=== PATIENT | female | born 1985 | race Caucasian/White ===

== ENCOUNTER → 2022-02-16 | Outpatient (CLI) | payer OTHER ==
--- NOTE | 2022-02-16 11:38 | XR ---
EXAMINATION TYPE: XR elbow complete RT DATE OF EXAM: 02/16/2022 COMPARISON: NONE HISTORY: Pain FINDINGS: Three views of the elbow demonstrate no pathologic joint effusion. The osseous structures are intact . There is no acute fracture or dislocation. IMPRESSION: 1. No acute fracture or dislocation. If symptoms persist follow-up study in 7 to 10 days could be ob tained.
--- NOTE | 2022-02-16 11:39 | XR ---
EXAMINATION TYPE: XR forearm RT DATE OF EXAM: 02/16/2022 COMPARISON: NONE HISTORY: Pain Two views of the forearm demonstrate that the osseous structures appear to be intact and the joint sp aces appear to be preserved. There is no acute fracture or dislocation. IMPRESSION: 1. No acute fracture or dislocation
--- NOTE | 2022-02-16 11:39 | XR ---
EXAMINATION TYPE: XR shoulder complete RT, XR humerus RT DATE OF EXAM: 02/16/2022 CLINICAL HISTORY: Injury yesterday with pain. TECHNIQUE: Three views of the right shoulder are obtained. 2 views right humerus. COMPARISON: None. FINDINGS: There is no acute fracture/dislocation evident in the right shoulder. The acromioclavicul ar and glenohumeral joint spaces appear within normal limits. The visualized ribs are intact and unr emarkable. Images of the right humerus show no acute displaced fracture. Overlying soft tissue is unremarkable. IMPRESSION: There is no acute fracture or dislocation in the right humerus or shoulder.
== END | disposition home or self-care (01) ==
LOC: RADXRMAIN 10:28
PROVIDERS: ATTEND Emergency Medicine
DX: S43.401A Unspecified sprain of right shoulder joint, initial encounter (principal); S49.91XA Unspecified injury of right shoulder and upper arm, initial encounter